=== PATIENT | male | born 1980 | race Caucasian/White ===

== ENCOUNTER 2018-07-10 13:53 | Inpatient (IN) ==
[2018-07-10] MEDS ORDERED: NS 1,000 ML IV ONE ×3 (14:27→20:28)
--- NOTE | 2018-07-10 14:30 | PROVIDER DOCUMENTATION ---
HPI-Abdominal Pain/GI Problem - General Chief Complaint: Abdominal Pain Stated Complaint: ABDOMINAL PAIN Time Seen by Provider: 07/10/18 14:10 Source: patient Allergies/Adverse Reactions: Patient Allergies Allergy/AdvReac Type Severity Reaction Status Date / Time No Known Allergies Allergy Verified 07/10/18 14:11 Home Medications: Home Medication List Medication Instructions Recorded Confirmed Last Taken Type Lamotrigine 2 tab PO DAILY 07/10/18 07/10/18 07/10/18 History Olanzapine 1 tab PO DAILY 07/10/18 07/10/18 07/10/18 History - History of Present Illness-ABD Nature of Presenting Problems: Patient is a 37 yowm presenting to the ED today for RUQ and LUQ pain. He reports the pain started 4 hours ago, he was lying down and sat up and it started hurting. He reports a history of Hepatitis C, bipolar, depression, schizophrenia, and diverticulitis. He reports he had diverticulitis 3-4 years ago in [place] and was hospitalized for it. He states he is short of breath when he lays down. Denies chest pain, nausea, vomiting, and diarrhea. He denies any allergies to any medications. Abdominal Pain Onset Location: reports: RUQ, LUQ. denies: epigastric, periumbilical Pain Radiation: reports: no radiation Quality of Pain: reports: aching, cramping Severity in ED: reports: mild Onset/Duration: reports: 4-6 hours ago Timing: reports: still present Activities at Onset: reports: rest Exposure to sick contacts?: No Modifying Factors: improves with: rest. worse with: movement Associated Symptoms: reports: diaphoresis, shortness of breath (when lying down) . denies: back/neck pain, chest pain, cough, diarrhea, EENT symptoms, fatigue, fever/chills, heartburn, nausea, vomiting, weakness Last BM: 2 days ago Dark Stools Present?: reports: none noticed. denies: black, bright red blood Rectal Bleeding: reports: none Bruising or Bleeding Gums?: No Similar Symptoms Previously?: Yes (pt reports he had this pain 3-4 years ago ) Recently seen or treated by another doctor?: No Review of Systems - Adult - REVIEW OF SYSTEMS - ADULT Constitutional: reports: no symptoms reported. denies: chills, fever Eyes: reports: no symptoms reported Ears, Nose, Mouth & Throat: reports: no symptoms reported Cardiovascular: reports: no symptoms reported. denies: chest pain, palpitations Respiratory: reports: shortness of breath (when lying down). denies: cough Gastrointestinal: reports: no symptoms reported. denies: diarrhea, nausea, vomiting Genitourinary: reports: no symptoms reported Musculoskeletal: reports: no symptoms reported Integumentary: reports: no symptoms reported Neurological: reports: no symptoms reported Psychiatric: reports: anxiety, depression. denies: suicidal thoughts Endocrine: reports: no symptoms reported Hematologic/Lymphatic: reports: no symptoms reported Allergic/Immunologic: reports: no symptoms reported All Other Systems: Reviewed and Negative Past History - Adult - PAST MEDICAL HISTORY-ADULT Review of Records: reports: Old Records Reviewed, Nursing Assessment Review, Medications Reviewed Major Childhood Illnesses: reports: other (Hep C) Cardiovascular: reports: denies history Respiratory: reports: denies history Gastrointestinal: reports: diverticulosis, hepatitis Genitourinary: reports: denies history Musculoskeletal: reports: denies history Neurological: reports: denies history Psychiatric: reports: bipolar, depression, psychiatric problems, schizophrenia Endocrine/Immune: reports: denies history Other Conditions: reports: denies history - PRIOR SURGERIES/PROCEDURES Surgical/Procedure History: reports: none - SOCIAL HISTORY Smoking: less than 1 pack/day Provider spent 3-5 mins advising pt. on dangers of tobacco.: Discussed manners to quit use, and f/u contacts for add'l counseling. Substance Use: none/never Alcohol Use Frequency: never Physical Exam-General - PHYSICAL EXAM-ADULT Initial Vital Signs Reviewed: Yes - CONSTITUTIONAL General Appearance: appears well, alert, no apparent distress, anxious - EYES Eyes: PERRL/EOMI - HEAD, EARS, NOSE, MOUTH & THROAT HENMT: normocephalic/atraumatic - NECK Neck: full range of motion, supple - RESPIRATORY Respiratory: chest non-tender, lungs clear, normal breath sounds, no pleuratic chest pain, no respiratory distress, no accessory muscle use, increased rate - CARDIOVASCULAR Cardiovascular: no edema, no gallop, tachycardia - GASTROINTESTINAL (ABDOMEN) Abdominal Exam: normal bowel sounds, soft, tenderness (RUQ LUQ) - LYMPHATIC Lymphatic: no adenopathy - MUSCULOSKELETAL Back Exam: normal inspection, no CVA tenderness, no vertebral tenderness Extremity: normal range of motion, non-tender - SKIN Integumentary: normal color, normal turgor, warm/dry - NEUROLOGIC Neurologic: grossly normal - PSYCHIATRIC Psych/Mental Status: normal mood/affect, normal thought content, oriented x 3 Progress - PLAN OF CARE/RESULTS Progress/Plan/Lab Results: Vital Signs - 8 hr 07/10/18 14:02 07/10/18 14:05 07/10/18 14:10 Temperature Pulse Rate 105 H 104 H 104 H Respiratory Rate 30 H 25 H 48 H Blood Pressure 165/116 O2 Sat by Pulse Oximetry 92 L 94 L 07/10/18 14:19 Temperature 98.0 F Pulse Rate 105 H Respiratory Rate 26 H Blood Pressure 165/111 O2 Sat by Pulse Oximetry 97 Orders Category Date Time Status Cardiac Monitoring DIRECTED Care 07/10/18 14:23 Active IV Insertion ORDERED Care 07/10/18 14:23 Active Notify MD of + Sepsis Screen NOW Care 07/10/18 14:23 Active Notify Physician As Ordered Care 07/10/18 14:23 Active BLOOD CULTURE [BLDCUL] Stat Lab 07/10/18 14:23 Uncollected CBC WITH DIFF [HEME] Stat Lab 07/10/18 14:23 Uncollected CK PROFILE [SP CHEM] Stat Lab 07/10/18 14:23 Uncollected COMPREHENSIVE METABOLIC PANEL [CHEM] Stat Lab 07/10/18 14:23 Uncollected LACTATE, PLASMA [CHEM] Q3H Lab 07/10/18 14:30 Uncollected LACTATE, PLASMA [CHEM] Q3H Lab 07/10/18 17:30 Uncollected LACTATE, PLASMA [CHEM] Q3H Lab 07/10/18 20:30 Uncollected PROTIME WITH INR [COAG] Stat Lab 07/10/18 14:23 Uncollected PTT [COAG] Stat Lab 07/10/18 14:23 Uncollected TROPONIN T Stat Lab 07/10/18 14:23 Uncollected URINALYSIS W/POSS RFLX CULT [URINALYSIS] Stat Lab 07/10/18 14:23 Uncollected 0.9% Sodium Chloride Inj [Ns] 1,000 ml Med 07/10/18 14:27 Active IV 999 mls/hr Oxygen Device Stat Oth 07/10/18 14:23 Active EKG [EKG] Stat Ther 07/10/18 14:26 Ordered 14:25 Discussed plan of care with patient he agrees with plan of care and denies any questions at this time. Patient reported to me he is homeless and lives outside and states that is why he is diaphoretic. 17:00- Discussed plan of care with Dr. Astorga. Further orders recommended. 17:30- waiting on CT result to call for admission. 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.RUQ pain is resolved - EKG 1 Time of EKG reading by physician:: 15:12 EKG Read and Signed by:: Bright Astorga EKG Interpretation (*Must complete 3 of following elements*): Abnormal Rate: 101 Rhythm: sinus Jackson: normal QRS: normal [place] Interval: normal - CT/MRI 1 CT Study: Abdomen, Pelvis Impression: See EMR Report ([facility] [address] [facility], [address], [place] [address] Department of Imaging Patient: MARGIE WRIGHTADM Date: 07/10/18MR#: [id number] : 1980[id number] Age/Sex: 37/MRoom/Bed: Loc: ED Ordering Physician: Maxim Quinones Family Physician: None,PCP Reason for Procedure: LUQ pain Signed EXAM: CT ABDOMEN/PELVIS W/O CONTRAST 07/10/2018 HISTORY: LUQ pain TECHNIQUE: This exam was performed using automated exposure control, adjustment of mA or kV according to patient size, and/or use of iterative reconstruction technique. COMMENT: There is atelectasis or fibrosis in the left posterior costophrenic sulcus. There are numerous cholesterol stones in the gallbladder. The spleen is not enlarged. The adrenal glands are not enlarged. There is no evidence of hydronephrosis or stones in the kidneys. There is some stool in the colon. The small bowel is not distended. There are diverticula particularly in the left colon. The appendix is normal in appearance. There is no evidence of diverticulitis. There are no abnormal fluid collections. There are some prominent external iliac nodes including one on the left side measuring over 15 mm in long axis. The urinary bladder is not distended. There are bone islands in the left femoral head and ischium. IMPRE SSION: No evidence of acute disease. Cholelithiasis. Electronically signed by Jc Castillo 07/10/2018 7:33 PM 07/10/181932 Interpreting Physician: Jc Castillo MD Dictated Date/Time: 07/10/181928 cc: Maxim Quinones; None,PCP) - CONSULTS/PCP/HOSPITALIST Notification #1 *Consult/PCP/Hospitalist*: [facility] Hospital[facility] Time Discussed: 20:44 Reason/Comments: Rhabdo; acute renal failure Consult Disposition: Admit #2 Consult: DR DE SOUZA, NEPHROLOGY Time Discussed: 21:21 (CONSULT AND MANAGEMENT DISCUSSDD) - CHANGE OF SHIFT REPORT (ED Provider) 1 Report Given and Care Transferred to:: JONO Crawford Time of Transfer: 19:00 Items Pending: CT/MRI Results Departure - Departure Date of Disposition Decision: 07/10/18 Time of Disposition Decision: 20:52 DIAGNOSIS: Methamphetamine use, Dehydration Rhabdomyolysis Qualifiers: Rhabdomyolysis type: non-traumatic Qualified Code(s): M62.82 - Rhabdomyolysis Abdominal pain Qualifiers: Abdominal location: upper abdomen, unspecified Qualified Code(s): R10.10 - Upper abdominal pain, unspecified Acute renal failure Qualifiers: Acute renal failure type: unspecified Qualified Code(s): N17.9 - Acute kidney failure, unspecified Disposition: ADMITTED INPATIENT 09 Certified Medical Emergency: Emergent Condition: Stable Referrals and Follow-Ups: None,PCP [Primary Care Provider] - - Critical Care Note This patient required my direct & personal management of CC.: No Attestation - Physician/ JOI Attestation Patient care was provided by Advanced Practice Provider:: Yes Advanced Practice Provider:: Black,Yany W. Advanced Practice Provider documentation review:: The Mid-level provider documentation, treatment plan and medical decision making was reviewed by the physician who agrees with all treatment and medical decision making by the MLP. The physician spent face to face time with patient:: No Advanced Practice Provider documentation review:: Supervising physician onsite and consulted in the evaluation and care of this patient. The physician did not have a face to face encounter with the patient.
--- NOTE | 2018-07-10 15:35 | EKG Report ---
Test Performed on : 07/10/2018 3:11:39 PM Test Reason : SOB/SEPSIS PROTOCOL Blood Pressure : / mmHG Vent. Rate : 101 BPM Atrial Rate : 101 BPM P-R Int : 128 ms QRS Dur : 094 ms QT Int : 354 ms P-R-T Axes : 052 029 001 degrees QTc Int : 459 ms Sinus tachycardia. Otherwise normal ECG No previous ECGs available Unconfirmed Result
[2018-07-10 15:48] LABS: BASO# 0.03 X1000 (0.0-0.2); BASO% 0.2 % (0.0-0.8); EOS# 0.06 X1000 (0.0-0.7); EOS% 0.4 % (0.0-10.0); HEMOGLOBIN 16.7 g/dL (14.0-18.0); IMM GRAN# 0.04 X1000 (0.0-0.04); IMM GRAN% 0.3 % (0.0-0.5); LYMPH# 3.87 X1000 (1.2-3.4); LYMPH% 24.2 % (20.5-51.1); MCH 28.3 PG (27-31); MCHC 34.8 g/dL (33-37); MCV 81.4 FL (81-99); MONO# 2.09 X1000 (0.11-0.59); MONO% 13.1 % (1.7-9.3); MPV 11.1 FL (7.4-10.4); NEUT# 9.87 X1000 (1.4-6.5); NEUT% 61.8 % (42.2-75.2); PLT 321 X1000 (130-400); RDW 13.1 % (11.5-14.5); WBC 15.96 X1000 (4.8-10.8)
[2018-07-10 16:00] LABS: INR 0.99; PROTIME 13.9 Seconds (11.0-16.0)
[2018-07-10 16:01] LABS: PTT 29.9 Seconds (22.3-41.8)
[2018-07-10 16:08] LABS: URINE SOURCE CLEAN CATCH
[2018-07-10 16:11] LABS: BILIRUBIN URINE SMALL (NEGATIVE); BLOOD URINE TRACE (NEGATIVE); COLOR YELLOW; GLUCOSE URINE TRACE mg/dL (NEGATIVE); KETONE URINE 20 mg/dL (NEGATIVE); LEUKOCYTES URINE NEGATIVE (NEGATIVE); NITRITE URINE NEGATIVE (NEGATIVE); PH URINE 5.5; PROTEIN URINE 100 mg/dL (NEGATIVE); SP GRAVITY URINE 1.024; TURBIDITY URINE CLEAR (CLEAR); UROBILINOGEN URINE 2 mg/dL (NORMAL)
[2018-07-10 16:20] LABS: ALB/GLOB RATIO 1.2; ALBUMIN 5.2 g/dL (3.5-5.0); CALCIUM 10.6 mg/dL (8.8-10.2); POTASSIUM 3.8 mmol/L (3.5-5.1); TOTAL BILIRUBIN 1.28 mg/dL (0.20-1.00); TOTAL PROTEIN 9.5 g/dL (6.3-8.3)
[2018-07-10 16:45] LABS: CK INDEX 1.4 (0.0-2.5); CK-MB 83.25 ng/mL (0.0-5.0)
[2018-07-10 16:46] LABS: UR EPITHELIAL CELLS <10 /HPF (<10); URINE BACTERIA NEGATIVE /HPF; URINE RBC <10 /HPF (<10); URINE WBC <10 /HPF (<10)
[2018-07-10 16:57] LABS: URINE CASTS GRANULAR PRESENT
[2018-07-10 17:28] LABS: UR AMPHETAMINES QUAL PRESUMPTIVE POSITIVE (NONE DETECT); UR BARBITUATES QUAL NONE DETECTED (NONE DETECT); UR BENZODIAZEPIN QUAL NONE DETECTED (NONE DETECT); UR CANNABINOIDS QUAL NONE DETECTED (NONE DETECT); UR COCAINE QUAL NONE DETECTED (NONE DETECT); UR METHADONE QUAL NONE DETECTED (NONE DETECT); UR OPIATES QUAL NONE DETECTED (NONE DETECT); UR OXYCODONE QUAL NONE DETECTED (NONE DETECT); UR PCP QUAL NONE DETECTED (NONE DETECT)
--- NOTE | 2018-07-10 19:36 | Diag Imaging Result Doc PS360 ---
EXAM: CT ABDOMEN/PELVIS W/O CONTRAST 07/10/2018 HISTORY: LUQ pain TECHNIQUE: This exam was performed using automated exposure control, adjustment of mA or kV according to patient size, and/or use of iterative reconstruction technique. COMMENT: There is atelectasis or fibrosis in the left posterior costophrenic sulcus. There are numerous cholesterol stones in the gallbladder. The spleen is not enlarged. The adrenal glands are not enlarged. There is no evidence of hydronephrosis or stones in the kidneys. There is some stool in the colon. The small bowel is not distended. There are diverticula particularly in the left colon. The appendix is normal in appearance. There is no evidence of diverticulitis. There are no abnormal fluid collections. There are some prominent external iliac nodes including one on the left side measuring over 15 mm in long axis. The urinary bladder is not distended. There are bone islands in the left femoral head and ischium. IMPRESSION: No evidence of acute disease. Cholelithiasis. Electronically signed by Jc Castillo 07/10/2018 7:33 PM
[2018-07-10] MEDS ORDERED: ZOFRAN IV PRN (20:55)
[2018-07-10] MEDS ORDERED: TYLENOL PO PRN (20:55)
[2018-07-10] MEDS ORDERED: NS 1,000 ML IV SCH (21:00)
[2018-07-10] MEDS ORDERED: LR 1,000 ML IV ONE (21:24)
--- NOTE | 2018-07-10 22:52 | HISTORY AND PHYSICAL ---
CHIEF COMPLAINT: Abdominal pain. HISTORY OF PRESENT ILLNESS: Mr. Awad is a 37-year-old male who presented to the emergency room today after complaining of right upper and lower quadrant abdominal pain. He denied any type of nausea, vomiting, diarrhea. Stated that he thought there was a chance that he had diverticulitis as he had a history of that in the past. He is from [place] and is hitchhiking home. From what I understand, he is homeless. He abuses methamphetamines. Initial laboratory workup showed the patient to be in rhabdomyolysis. He was also positive for amphetamines. He will be admitted to the medical floor for further evaluation and treatment. REVIEW OF SYSTEMS: Fourteen point review of systems conducted with the patient. Pertinent positives listed above in the HPI. All other systems reviewed and found to be negative. PAST MEDICAL HISTORY: Hepatitis C and hypertension. PREVIOUS SURGICAL HISTORY: Oral surgery. SOCIAL HISTORY: Homeless. Usually resides in [place], [place]. He is hitchhiking back there. Smokes half a pack of cigarettes per day. Uses methamphetamines intravenously. Denies alcohol. FAMILY HISTORY: Coronary artery disease in first-degree relatives. ALLERGIES: No known allergies. HOME MEDICATIONS: 1. Zyprexa 10 mg p.o. at bedtime. 2. Lamictal 50 mg p.o. daily. PHYSICAL EXAMINATION: VITAL SIGNS: Temperature 98, pulse 87, respirations 15, blood pressure 113/65, oxygen saturation 100% on room air. GENERAL: A pleasant 37-year-old male well developed, well nourished, answers all questions appropriately, is alert and oriented times 3. HEENT: Head is atraumatic, normocephalic. Pupils equal, round, reactive to light. Extraocular eye movement is intact. Sclerae are anicteric. Conjunctiva is pink. Oral mucosa is dry. NECK: Supple. No JVD. No thyromegaly. Trachea is midline. No cervical lymphadenopathy. CARDIAC: S1, S2 appreciated. No murmurs, gallops, rubs. LUNGS: Clear to auscultation bilaterally. No rhonchi, wheezes, rales. Symmetric rise and fall with respirations. ABDOMEN: Soft, nondistended. Tender in the right upper quadrant. It is nonrigid. No guarding. Positive Yen's sign. No pulsatile mass. No organomegaly. EXTREMITIES: No clubbing, cyanosis or edema. Two-plus pedal pulses bilaterally. GENITOURINARY: No bladder distention. Otherwise deferred. NEUROLOGICAL: Alert and oriented times 3. Cranial nerves 2 through 12 grossly intact. DIAGNOSTIC DATA: CT of his abdomen and pelvis showed cholelithiasis noting that there were numerous cholesterol stones in the gallbladder. LABORATORY DATA: WBC 15.96. Hemoglobin 16.7. Hematocrit 48. Platelet count 321. Coagulation studies within normal limits. Sodium 136. Potassium 3.8. Chloride 96. Carbon dioxide 20. BUN 48. Creatinine 2. Glucose 86. AST 168. ALT 66. Total bilirubin 1.28. CK 6058. Urine unremarkable. Toxicology screen positive for amphetamines. ASSESSMENT AND PLAN: 1. Rhabdomyolysis. Patient is homeless. He has had nonadequate oral intake. He also abuses amphetamines intravenously. We will give fluid boluses and continue IV fluids at 125 mL an hour. Recheck CK profile and renal function in a.m. 2. Acute kidney injury secondary to fluid volume depletion. See above. 3. Fluid volume depletion. See above. 4. Methamphetamine use and abuse. The patient was counseled about the perils of using intravenous amphetamines. He stated that he has an abuse problem. He is not interested in quitting at this time. 5. Tobacco abuse. Smoking cessation was gone over with the patient. Again he denied the want to quit. We will add a NicoDerm patch to the patient's medication profile. 6. Hepatitis C. Aware. Patient also has noted increase in his liver function tests. Recommended that the patient follow up outpatient. 7. Cholelithiasis with possible cholangina. Patient had multiple cholesterol stones on his CT scan. We will defer to the primary team. Possible surgical consultation if they feel that the gallbladder may need removed. Further recommendations per patient clinical course. Dictated by JONO Frost for Sohan Rendon MD cc: JONO Frost MD
[2018-07-11] MEDS ORDERED: ATIVAN IV PRN (01:31)
[2018-07-11] MEDS: ZYPREXA PO SCH ×2 (01:39→09:02)
[2018-07-11] MEDS: NICODERM PATCH TD SCH ×2 (01:40→09:02)
--- NOTE | 2018-07-11 03:56 | HISTORY AND PHYSICAL ---
ADDENDUM: CHIEF COMPLAINT: Muscle aches. HISTORY: Patient was seen and examined by myself. Full note dictated and discussed with nurse practitioner. Patient is a 37-year-old male who unfortunately has a known history of drug abuse and apparently used methamphetamine a few days ago. He notes that he has not been urinating for the past 2 or 3 days. He presented to the hospital and was subsequently diagnosed with renal failure with creatinine 2.0, BUN 48, and rhabdomyolysis with CPK is 6018. We will admit to the hospital. IV fluids. Monitor for withdrawal and we will follow. cc: Sohan Rendon MD
[2018-07-11] MEDS ORDERED: ZYPREXA PO SCH (09:00)
[2018-07-11] MEDS: LAMICTAL PO SCH (09:01)
[2018-07-11 09:40] LABS: HEMATOCRIT 41.6 % (42.0-52.0); HEMOGLOBIN 14.4 g/dL (14.0-18.0); MCH 28.7 PG (27-31); MCHC 34.6 g/dL (33-37); RBC 5.01 XMIL (4.7-6.1); WBC 8.53 X1000 (4.8-10.8)
[2018-07-11 09:41] LABS: BASO# 0.02 X1000 (0.0-0.2); BASO% 0.2 % (0.0-0.8); EOS# 0.28 X1000 (0.0-0.7); EOS% 3.3 % (0.0-10.0); IMM GRAN# 0.02 X1000 (0.0-0.04); IMM GRAN% 0.2 % (0.0-0.5); LYMPH# 2.61 X1000 (1.2-3.4); LYMPH% 30.6 % (20.5-51.1); MONO# 0.79 X1000 (0.11-0.59); MONO% 9.3 % (1.7-9.3); MPV 10.4 FL (7.4-10.4); NEUT# 4.81 X1000 (1.4-6.5); NEUT% 56.4 % (42.2-75.2); PLT 224 X1000 (130-400); RDW 12.9 % (11.5-14.5)
[2018-07-11 10:09] LABS: AGAP 12; ALBUMIN 3.9 g/dL (3.5-5.0); ALKALINE PHOSPHATASE 107 U/L (32-122); BUN 31 mg/dL (8-22); CALCIUM 9.8 mg/dL (8.8-10.2); CHLORIDE 101 mmol/L (98-107); CK PROFILE 2593 U/L (24-204); COSMO 281; ESTIMATED GFR > 60; GLUCOSE 175 mg/dL (70-104); GOT 80 U/L (10-34); GPT 46 U/L (10-44); POTASSIUM 3.6 mmol/L (3.5-5.1); SODIUM 135 mmol/L (136-145); TCO2 22 mmol/L (25-35); TOTAL BILIRUBIN 0.43 mg/dL (0.20-1.00); TOTAL PROTEIN 5.9 g/dL (6.3-8.3)
[2018-07-11 10:40] LABS: CK-MB 26.41 ng/mL (0.0-5.0)
[2018-07-11] MEDS: SODIUM BICARBONATE 8.4% 150 MEQ in D5W 1,000 ML IV SCH ×3 (11:33→21:51)
[2018-07-11] MEDS ORDERED: VANCOMYCIN IV PER PHARMACY MISC SCH (12:00)
--- NOTE | 2018-07-11 13:04 | PROGRESS NOTE ---
DATE: 07/11/2018 SUBJECTIVE: This morning Mr. Awad refers to be feeling a whole lot better today. He said he had some mild discomfort in the left upper quadrant, but otherwise he is feeling stronger. OBJECTIVE: Vital Signs: Current vitals, blood pressure is 107/56, pulse of 72, respirations 18, and temperature is 97.5 degrees. Patient was saturating about 90 to 96 percent on room air. General: Mr. Awad is a 37-year-old male. He is in bed in no distress. Mucosa is pink and moist. Anicteric. Acyanotic. Neck: Supple. Chest: Good air entry bilaterally. There was no crepitations. No rhonchi. Cardiovascular: Regular rate and rhythm. Abdomen: Soft and minimally tender in the epigastrium to the left upper quadrant. Extremities: No pedal edema. 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 LABORATORY: Data has been reviewed. WBC has normalized. Chemistry is also reviewed. Creatinine is back to 1.0. Bicarb is still 22. AST is down to 80, ALT is down to 46, and creatinine is down to 2593. Blood culture showing gram-positive cocci 1/2. ASSESSMENT: 1. Rhabdomyolysis. We will continue with IV fluids. 2. Acute kidney injury secondary to rhabdomyolysis improved. 3. Clinical volume depletion. 4. Recreational drug use (methamphetamine use and abuse). Patient has been counseled. 5. History of hepatitis C. 6. Transaminitis likely due to acute rhabdomyolysis on top of hepatitis C. 7. Cholelithiasis with no evidence of acute gallbladder inflammation. 8. Gram-positive cocci in blood 1/2. The patient is an IV drug user. It is very possible being 1/2 it could be contaminant. However, because of his history, I will prefer to start treating him until we have the final report on the culture for both of them. The patient's kidney function has normalized so I am going to start using vancomycin. 9. The patient is also homeless. cc: Jean Barroso MD
[2018-07-11] MEDS: VANCOMYCIN 2 GM in NS 500 ML IV SCH (15:05)
[2018-07-12] MEDS: SODIUM BICARBONATE 8.4% 150 MEQ in D5W 1,000 ML IV SCH (05:44)
[2018-07-12 07:26] LABS: BASO# 0.01 X1000 (0.0-0.2); BASO% 0.2 % (0.0-0.8); EOS# 0.21 X1000 (0.0-0.7); EOS% 3.2 % (0.0-10.0); HEMATOCRIT 39.6 % (42.0-52.0); HEMOGLOBIN 13.5 g/dL (14.0-18.0); IMM GRAN# 0.02 X1000 (0.0-0.04); IMM GRAN% 0.3 % (0.0-0.5); LYMPH# 2.48 X1000 (1.2-3.4); LYMPH% 37.5 % (20.5-51.1); MCH 28.6 PG (27-31); MCHC 34.1 g/dL (33-37); MCV 83.9 FL (81-99); MONO# 0.72 X1000 (0.11-0.59); MONO% 10.9 % (1.7-9.3); MPV 10.6 FL (7.4-10.4); NEUT# 3.18 X1000 (1.4-6.5); NEUT% 47.9 % (42.2-75.2); PLT 211 X1000 (130-400); RBC 4.72 XMIL (4.7-6.1); RDW 12.6 % (11.5-14.5); WBC 6.62 X1000 (4.8-10.8)
[2018-07-12 07:57] LABS: AGAP 10; ALB/GLOB RATIO 1.2; ALBUMIN 3.1 g/dL (3.5-5.0); ALKALINE PHOSPHATASE 105 U/L (32-122); BUN 19 mg/dL (8-22); CALCIUM 9.3 mg/dL (8.8-10.2); CHLORIDE 103 mmol/L (98-107); CK TOTAL 870 U/L (24-204); COSMO 279; CREATININE 0.7 mg/dL (0.7-1.2); ESTIMATED GFR > 60; GLUCOSE 115 mg/dL (70-104); GOT 44 U/L (10-34); GPT 33 U/L (10-44); POTASSIUM 3.8 mmol/L (3.5-5.1); SODIUM 138 mmol/L (136-145); TCO2 25 mmol/L (25-35); TOTAL BILIRUBIN < 0.15 mg/dL (0.20-1.00); TOTAL PROTEIN 5.7 g/dL (6.3-8.3)
[2018-07-12 08:16] VITALS: BP 133/76
[2018-07-12] MEDS: ZYPREXA PO SCH (08:36)
[2018-07-12] MEDS: LAMICTAL PO SCH (08:36)
[2018-07-12] MEDS: NICODERM PATCH TD SCH (08:36)
[2018-07-12] MEDS: VANCOMYCIN 2 GM in NS 500 ML IV SCH (08:36)
--- NOTE | 2018-07-13 07:53 | DISCHARGE SUMMARY ---
ADMISSION DATE: 07/11/2018 DISCHARGE DATE: 07/12/2018 DISPOSITION: Home. CONSULTATIONS DURING THIS ADMISSION: None. INVASIVE PROCEDURES DONE: None. IMAGING STUDIES OF SIGNIFICANCE: A CT scan of the abdomen and pelvis showed no evidence of acute disease. There was cholelithiasis. ASSESSMENT AT ADMISSION: 1. Rhabdomyolysis. 2. Acute kidney injury. 3. Fluid overload. 4. Methamphetamine use and abuse. 5. Hepatitis C. DIAGNOSES AT THE TIME OF DISCHARGE: 1. Rhabdomyolysis, improved. 2. Acute kidney injury secondary to rhabdomyolysis and dehydration, resolved. 3. Clinical volume depletion, improved. 4. Recreational drug abuse (methamphetamine use and abuse). Patient has been counseled. 5. Hepatitis C. 6. Transaminitis secondary to rhabdomyolysis on top of chronic hepatitis C. 7. Cholelithiasis with no evidence of cholecystitis. 8. Coagulase-negative staphylococcus one out of two, presumably contaminant. 9. Homeless. DISCHARGE MEDICATIONS: 1. Lamotrigine 50 mg daily. 2. Olanzapine 10 mg daily. These are the patient's home medications that he has been advised to resume. PRESENTING COMPLAIN: Abdominal pain. HISTORY OF PRESENTING COMPLAINT: Mr. Awad is a 37-year-old, male who presented to the emergency department because of abdominal pain. It appears that he is homeless. Upon presenting, the patient was evaluated. A CT scan of the abdomen was completely unremarkable except for cholelithiasis with no evidence of cholecystitis. The patient was also found to be in rhabdomyolysis with renal impairment. He was subsequently admitted for further medical care. HOSPITAL COURSE: Mr. Awad was admitted to the medical floor. He was adequately hydrated. Creatinine dropped from 2.0 and normalized this morning at 0.7. His acid base metabolic acidosis with high gap also improved. The patient had elevated AST and ALT on admission. All of these also have normalized. The CK was 6058. It is 870 this morning. Mr. Awad has progressively gotten better. He is eating well. He has had a bowel movement. He feels stronger. We think he should be okay to go home. He has been advised to adequately hydrate himself and to avoid the use of recreational drug use. At the time of the discharge, his vitals, his blood pressure is 133/76, pulse 64, respiration is 18, temperature is 98 degrees. Patient was saturating 100% on room air. Physical exam is completely normal. Mr. Awad is being discharged in stable medical condition. Time spent for discharge is 36 minutes. cc: Jean Barroso MD
== END 2018-07-12 15:22 | disposition home or self-care (01) | DRG 683 ==
LOC: SUPCPDRO → ED 13:53 → SUATTDRO 07-11 00:20 → 3N 07-11 00:20
PROVIDERS: ATTEND Internal Medicine
CPT/HCPCS: 74176; 80053; 80101; 80301; 80307; 80324; 80345; 80346; 80353; 80358; 80361; 80365; 81001; 82550; 82553; 83605; 83690; 83992; 84484; 85025; 85610; 85730; 87040; 93005; 96360; 96361; 99285; A9270; G0431; G0434; G0479; G0480; J3370; J7030; J7040; J7070; J7120